=== PATIENT | female | born 1945 | race Caucasian/White ===

== ENCOUNTER 2021-12-30 10:52 | Outpatient (CLI) | payer MEDICARE, OTHER ==
[2021-12-30 20:21] LABS: SARS-CoV-2 PCR by NAA Not Detected (NotDetected)
== END 2021-12-30 10:53 | disposition home or self-care (01) ==
LOC: LABBT 10:52
PROVIDERS: ATTEND Ophthalmology Retina Specialist
DX: Z01.812 Encounter for preprocedural laboratory examination (principal); H33.21 Serous retinal detachment, right eye; Z20.822 Contact with and (suspected) exposure to COVID-19
CPT/HCPCS: U0003; U0005

== ENCOUNTER 2022-01-01 07:28 | Day surgery (SDC) | payer MEDICARE, OTHER ==
[~2022-01-01 07:28] MED LIST: Fentanyl 250 MCG/5 ML VIAL ONE; Fluorouracil 100 MG, Enoxaparin Sodium 25 MG, EPINEPHrine 0.3 MG in Ophthalmic Irrigati... IRR SCH; Midazolam HCl 2 mg/2 ml Vial ONE
[2022-01-01] MEDS ORDERED: Phenylephrine 2.5% Ophth Soln 5 ML BOT ONE (08:13)
[2022-01-01] MEDS ORDERED: Cyclopentolate 1% Opth Drop 2 ML BOT ONE (08:13)
[2022-01-01] MEDS ORDERED: Triamcinolone 40 MG/ML VIAL ONE (10:52)
[2022-01-01] MEDS ORDERED: Bupivacaine PF 0.75% SDV 10 ML ONE (10:52)
[2022-01-01] MEDS ORDERED: Lidocaine 4% PF 5 ML AMP ONE (10:52)
[2022-01-01] MEDS ORDERED: PROPOFOL 200 MG/20 ML VIAL ONE (10:52)
[2022-01-01] MEDS ORDERED: Maxitrol 0.1% Opth Oint 3.5 GM TUBE ONE (10:52)
[2022-01-01] MEDS ORDERED: Enoxaparin Sodium 30 MG/0.3 ML SYRINGE ONE (10:52)
== END 2022-01-01 12:50 | disposition home or self-care (01) ==
LOC: SDC 07:28
PROVIDERS: ATTEND Ophthalmology Retina Specialist
PROC: 08T43ZZ Resection of Right Vitreous, Percutaneous Approach (ICD-10-PCS; principal; 2022-01-01)
DX: H33.011 Retinal detachment with single break, right eye (principal); Z79.1 Long term (current) use of non-steroidal anti-inflammatories (NSAID); Z79.899 Other long term (current) drug therapy; Z88.0 Allergy status to penicillin
CPT/HCPCS: 67025; J0171; J1650; J2250; J2704; J3010; J3301; J3490; J9190